=== PATIENT | female | born 1975 | race Caucasian/White ===

== ENCOUNTER 2018-06-11 17:09 | Emergency (ER) | payer SELFPAY ==
[2018-06-11 17:14] VITALS: BP 135/84; PULSE 92; RESP 14; TEMP 36.7; O2SAT 98
--- NOTE | 2018-06-11 17:31 | W.ED.GENAD ---
Discharge Plan Disposition Patient Disposition: HOME Condition: Stable Discharge Details Chief Complaint: Abd Prob Clinical Impression: Abdominal pain, Cellulitis Primary Care Provider: Unknown,Unknown ED Provider: Lydia Hayes Home Meds and New Rx's Prescriptions: New clindamycin HCl 150 mg capsule 450 mg PO TID 6 Days Qty: 54 RF: 0 Continued duloxetine [Cymbalta] 60 mg Capsule,Delayed Release(Dr/Ec) 60 mg PO DAILY RF: 0 Discharge Instructions Instructions: Cellulitis (ED), Abdominal Pain (ED) Additional Instructions: You may have a mild skin infection near your lap band. You are being given oral antibiotics to treat for this possible mild infection. Drink plenty of fluids and get plenty of rest. Take Tylenol Motrin as needed and directed for pain. Call your primary care doctor tomorrow to schedule follow-up appointment for reevaluation early next week. Call your bariatric surgeon in [place] for follow-up. If you are unable to follow-up with your bariatric surgeon, you may follow-up with bariatric surgery at [facility] or [facility]. You can call care management here at [facility] to help with assistance with this appointment if needed. Return immediately to the emergency department any worsening or new concerning symptoms. Referrals: Cori Alcantara MD [ [facility] STAFF PHYSICIAN] - Brant Gan III, DO [OSTEOPATHIC DOCTOR] - Discharge Data Discharge Physician: Lydia Hayes Medical Decision Making 42-year-old female who is 8 years status post a laparoscopic gastric banding who presents with 5 days of intermittent left upper quadrant abdominal pain that is worse with movement, standing or lifting. No other significant associated symptoms. She does admit to cross-country skiing one day prior to onset of symptoms but denies any known injury. She does admit to drinking alcohol several times weekly. She states she has not seen her bariatric surgeon in [place] for the past 4-6 years. She states her lap band port has not been accessed for approximately 4-6 years. She states that she had a superficial anterior abdominal wall laparoscopic wound infection 1 month ago for which she saw her primary doctor's office and was treated with topical antibiotics and the infection completely healed and she has no pain in this area. Vitals within normal limits. Afebrile. Patient has tenderness to palpation in the epigastric and left upper quadrant region. There are no acute superficial signs of cellulitis. No right lower quadrant tenderness. Diagnosis includes abdominal muscle wall strain, cholecystitis, pancreatitis, small bowel obstruction, gastritis. Will place an IV, bolus IV fluids, labs, urinalysis, Toradol and CT abdomen to r/o acute process. 1850 -- pt states she feels better, pain improved. 1914 --labs and imaging reviewed. Labs unremarkable. CT notes presumed postsurgical change related to lap band placement with the possibility of adjacent cellulitis not excluded. Gastric lap band in place. Minimal free fluid but no other acute findings. 1924 --d/w surgery Dr. Gan - due to specific complications related to lap band surgery, recommends consultation with a bariatric surgeon. 1929 --d/w transfer center at [facility] - there is no bariatric surgeon available concrete form setter at this time. 1944 --d/w [facility] surgery -there is no bariatric surgeon available concrete form setter in the evenings. Discussed with their general surgeon concrete form setter and based on patient's negative workup, no fever, nontoxic presentation, this does not sound consistent with an acute infection. Initially did not recommend oral antibiotics, but it was discussed that patient had a superficial incision wound infection 1 month ago, and agrees with plan with antibiotics. He recommended keflex but patient has an allergy to penicillin. Will treat with clindamycin. 1 dose of clindamycin given here and 2 doses for home in addition to a prescription. Patient that her symptoms can possibly be due to a muscle strain, or she may have a very mild superficial cellulitis. Patient instructed to follow-up with her primary care doctor for reevaluation early next week. She states she will also call her bariatric surgeon in [place]. Patient states she does not plan on traveling there for follow-up, so she is recommended to follow-up with [facility] or [facility] bariatric surgery for follow-up if needed. She is instructed to return here immediately with any worsening symptoms. Patient also expressed concern about insurance of medical costs. She was offered to speak with care management but declined. Medical Records Medical records reviewed: Yes I reviewed the patient's medical records. Imaging Data Radiologic Study: Radiologist's impression: CT Abdomen and Pelvis With Contrast EXAM DATE/TIME: 06/11/2018 5:49 PM CLINICAL HISTORY: 42 years old, female; Pain; Abdominal pain; Prior surgery TECHNIQUE: Axial computed tomography images of the abdomen and pelvis with intravenous contrast. Coronal and sagittal reformatted images were created and reviewed. COMPARISON: No relevant prior studies available. FINDINGS: Lower thorax: No acute findings. ABDOMEN: Liver: Low density hepatic lesions, probable small cyst. Gallbladder and bile ducts: Normal. No calcified stones. No ductal dilation. Pancreas: Normal. No ductal dilation. Spleen: Normal. No splenomegaly. Adrenals: Normal. No mass. Kidneys and ureters: Normal. No hydronephrosis. Stomach and bowel: Gastric lap band in place. There is soft tissue stranding in the subcutaneous tissues of the left lower quadrant and anterior abdominal wall in the region of the lap band reservoir. Appendix: No evidence of appendicitis. PELVIS: Bladder: The bladder is not well-distended. Reproductive: IUD in place. ABDOMEN and PELVIS: Intraperitoneal space: Minimal free fluid. Bones/joints: No acute fracture. No dislocation. Soft tissues: See Stomach And Bowel Finding. Vasculature: Normal. No abdominal aortic aneurysm. Lymph nodes: Normal. No enlarged lymph nodes. IMPRESSION: 1. Presumed postsurgical change related to lap band placement. Adjacent cellulitis in the appropriate clinical setting not excludable. 2. Minimal free fluid can be normal for age. Lab Data Lab results reviewed: Yes I reviewed the patient's lab results. Laboratory Tests Range/Units 06/11/18 06/11/18 17:58 17:58 WBC (4.4-10.8) k/cumm 9.15 RBC (4.00-5.20) m/cumm 4.42 Hgb (12.0-15.5) g/dL 13.2 Hct (36.0-46.0) % 39.0 MCV (80-95) fL 88.2 MCH (27.0-33.0) pg 29.9 MCHC (32.0-36.0) g/dL 33.8 RDW (11.7-14.6) % 12.6 Plt Count (130-400) x1000/uL 239 MPV (8.0-11.0) fL 11.5 H Immature Gran % 0.2 Neutrophils % 67.6 Lymphocytes % 23.8 Monocytes % 7.3 Eosinophils % 0.8 Basophils % 0.3 Absolute Neutrophils (1.2-6.7) k/cumm 6.18 Absolute Lymphocytes (1.2-3.4) k/cumm 2.18 Absolute Monocytes (0.11-0.7) k/cumm 0.67 Absolute Eosinophils (0.0-0.7) k/cumm 0.07 Absolute Basophils (0.0-0.2) k/cumm 0.03 Sodium (136-145) mmol/L 141 Potassium (3.5-5.1) mmol/L 3.6 Chloride (98-107) mmol/L 104 Carbon Dioxide (21.0-32.0) mmol/L 26.4 Anion Gap (3-11) mmol/L 10.6 BUN (7-18) mg/dL 13 Creatinine (0.55-1.02) mg/dL 0.84 Estimated GFR/1.73 m2 (mL/min/1.73m2) >= 60.00 Glucose (70-100) mg/dL 84 Calcium (8.5-10.1) mg/dL 9.0 Total Bilirubin (0.2-1.0) mg/dL 0.2 AST (15-37) U/L 24 ALT (12-78) U/L 26 Alkaline Phosphatase (46-116) U/L 79 Total Protein (6.4-8.2) g/dL 7.5 Albumin (3.4-5.0) g/dL 3.9 Lipase (73-393) U/L 154 HPI General Mode of arrival: ambulatory. Date/Time Provider Initiated Documentation: 06/11/18 17:20. Limitations to Documentation: no limitations. Information obtained by: patient. HPI Narrative: Patient is a 42-year-old female who presents with intermittent dull, achy, crampy upper abdominal pain for the past 5 days. Patient states the pain is worse with movement, standing or lifting and better with nothing. Patient states she took Aleve without relief. Patient admits to vomiting once 2 days ago but not since then. She denies fever, nausea, vomiting, diarrhea or urinary symptoms. Patient states she was cross-country skiing the day prior to onset of symptoms of abdominal pain but denies any known injury. Patient states she is sexually active with one partner and denies any known exposure to STDs, vaginal discharge or vaginal lesions. Patient states she does drink 2 glasses of wine 3-4 times weekly. She also states she ate fois gras and kang 1 day prior to onset of symptoms but denies any known h/o gallstones. Related Data Home Medications Medication Instructions Recorded Confirmed clindamycin HCl 450 mg PO TID 6 Days #54 cap 06/11/18 duloxetine [Cymbalta] 60 mg PO DAILY 06/11/18 06/11/18 Previous Rx's Medication Instructions Recorded clindamycin HCl 450 mg PO TID 6 Days #54 cap 06/11/18 Allergies Allergy/AdvReac Type Severity Reaction Status Date / Time aspirin AdvReac Intermediate vomiting Unverified 06/11/18 17:25 and rash Penicillins AdvReac Intermediate vomiting Unverified 06/11/18 17:25 and rash General Stated Complaint: Abd Prob RIMA: 3 Review of Systems Review of Systems All systems reviewed & are unremarkable except as noted in HPI and below Constitutional Reports as per HPI, Denies chills and Denies fever(s) Eyes Denies blurry vision ENT Denies dizziness, Denies sore throat and Denies throat swelling Cardiovascular Denies chest pain and Denies dyspnea Respiratory Denies dyspnea Gastrointestinal Reports abdominal pain, Denies diarrhea and Denies vomiting Genitourinary Denies hematuria and Denies dysuria Musculoskeletal Denies back pain and Denies numbness Integumentary/Breasts Denies lesions and Denies rash Neurologic Denies dizziness and Denies numbness Allergic/Immunologic Denies throat swelling PFSH Medical History Port-A-Cath in place (Acute) Depression (Chronic) Surgical History Hx of laparoscopic gastric banding (Acute) History of tonsillectomy (Chronic) Social History Smoking/Tobacco Use Status: Former Tobacco Use alcohol intake: current alcohol intake frequency: 0-2 drinks per day substance use type: does not use Exam Const General: cooperative, healthy appearing and no acute distress HENMT Head: normal to inspection Face and sinus: normal facial exam Eyes General: appearance normal, both eyes and all related structures Pupils: PERRL EOM: EOM intact bilaterally Neck Neck: normal visual inspection and No submandibular swelling Lymphatic: no lymphadenopathy noted Chest Chest: normal inspection of the chest and no tenderness Resp Effort & Inspection: normal respiratory effort and able to speak in complete sentences Auscultation: clear to auscultation bilaterally Cardio Rate: regular rate Rhythm: regular rhythm GI Palpation: soft, not firm, not rigid and tender in the epigastrum and in the LUQ Auscultation: normal bowel sounds Abdomen image: 1. Laparoscopic band scar with blanching erythematous tissue surrounding this area with no acute signs of infection or drainage 2. Healing superficial skin burn w/o acute signs of infection Back/Spine/Pelvis Back: no CVA tenderness Skin General skin exam: no rashes or lesions noted Neuro General: alert, awake and oriented x3 Cognition: normal cognition Speech: speech normal Motor: muscle tone normal throughout Sensory Exam: no sensory deficits noted Extrem General: normal to inspection, full ROM, normal capillary refill, no calf tenderness bilaterally and no edema Psych Appearance: grossly normal Mental Status: mental status grossly normal Speech and Movement: speech and movement normal Affect: normal affect Course Vital Signs Temperature 98.1 F 06/11/18 17:14 Pulse 92 H 06/11/18 17:14 Respiratory Rate 14 06/11/18 17:14 Blood Pressure 135/84 06/11/18 17:14 Pulse Oximetry 98 06/11/18 17:14 Temperature 98.1 F 06/11/18 17:14 Temperature Source Skin 06/11/18 17:14 Pulse 92 H 06/11/18 17:14 Respiratory Rate 14 06/11/18 17:14 Blood Pressure 135/84 06/11/18 17:14 Blood Pressure Position Sitting 06/11/18 17:14 Pulse Oximetry 98 06/11/18 17:14 Oxygen Delivery Method Room Air 06/11/18 17:14 Oxygen Flow Rate 0 06/11/18 17:14 Pain Level 7 06/11/18 17:14
--- NOTE | 2018-06-11 17:40 | NUR.NOTE ---
Nursing Note: MD Hayes is at the bedside.
--- NOTE | 2018-06-11 17:46 | DI.CT_ITS ---
SYMPTOMS/DIAGNOSIS: UPPER ABD PAIN, ? CHOLECYSTITIS VS PANCREATITIS CT OF THE ABDOMEN AND PELVIS: There are no prior comparison exams. Images were performed from the lung bases through the ischial tuberosities after and without oral contrast. There is a lap band in place at the fundus of the stomach. The reservoir in the anterior left mid abdominal soft tissues shows some surrounding stranding. The date of the placement is unknown. The findings could be post surgical or represent surrounding cellulitis or possibly post traumatic. The lung bases are clear. A tiny cyst is seen in the liver. The gallbladder, spleen, pancreas, kidneys and adrenals are unremarkable. An IUD is noted in the uterus. The ovaries and bladder are unremarkable. There is a trace amount of free fluid. There is no bowel dilatation or inflammatory change. IMPRESSION: Some stranding is seen in the soft tissues surrounding the reservoir for the lap band. Clinical correlation is recommended. No acute intra-abdominal abnormality is seen.
[2018-06-11] MEDS: Normal Saline 1,000 ML 1000 ML IV (17:55)
[2018-06-11] MEDS: Normal Saline Flush 10 ML SYR IVP (17:55)
[2018-06-11] MEDS: Ketorolac 30 MG/ML VIAL IVP (18:01)
[2018-06-11 18:02] LABS: Abs Immature Grans 0.02 k/cumm (0.0-0.09); Absolute Basophil Count 0.03 k/cumm (0.0-0.2); Absolute Eosinophil Count 0.07 k/cumm (0.0-0.7); Absolute Lymphocyte Count 2.18 k/cumm (1.2-3.4); Absolute Monocyte Count 0.67 k/cumm (0.11-0.7); Absolute Neutrophil Count 6.18 k/cumm (1.2-6.7); Basophils % 0.3; Eosinophils % 0.8; HGB 13.2 g/dL (12.0-15.5); Immature Grans % 0.2; Lymphocytes % 23.8; Mean Corp. HGB Concentration 33.8 g/dL (32.0-36.0); Mean Corpuscular Hemoglobin 29.9 pg (27.0-33.0); Mean Corpuscular Volume 88.2 fL (80-95); Mean Platelet Volume 11.5 fL (8.0-11.0); Monocytes % 7.3; Neutrophils % 67.6; Platelet Count 239 x1000/uL (130-400); RBC 4.42 m/cumm (4.00-5.20); RBC Distribution Width 12.6 % (11.7-14.6); White Blood Cell Count 9.15 k/cumm (4.4-10.8)
[2018-06-11 18:14] LABS: ALT 26 U/L (12-78); AST 24 U/L (15-37); Albumin 3.9 g/dL (3.4-5.0); Alkaline Phosphatase 79 U/L (46-116); Anion Gap 10.6 mmol/L (3-11); BUN 13 mg/dL (7-18); Bilirubin, Total 0.2 mg/dL (0.2-1.0); CO2 26.4 mmol/L (21.0-32.0); CREATININE 0.84 mg/dL (0.55-1.02); Chloride 104 mmol/L (98-107); Glucose 84 mg/dL (70-100); Lipase 154 U/L (73-393); Potassium 3.6 mmol/L (3.5-5.1); Sodium 141 mmol/L (136-145); Total Protein 7.5 g/dL (6.4-8.2)
[2018-06-11] MEDS: Omnipaque 350 MG/ML 100 ML BTL IJ (19:03)
--- NOTE | 2018-06-11 19:17 | DI.VRAD_ITS ---
EXAM: CT Abdomen and Pelvis With Contrast EXAM DATE/TIME: 06/11/2018 5:49 PM CLINICAL HISTORY: 42 years old, female; Pain; Abdominal pain; Prior surgery TECHNIQUE: Axial computed tomography images of the abdomen and pelvis with intravenous contrast. Coronal and sagittal reformatted images were created and reviewed. COMPARISON: No relevant prior studies available. FINDINGS: Lower thorax: No acute findings. ABDOMEN: Liver: Low density hepatic lesions, probable small cyst. Gallbladder and bile ducts: Normal. No calcified stones. No ductal dilation. Pancreas: Normal. No ductal dilation. Spleen: Normal. No splenomegaly. Adrenals: Normal. No mass. Kidneys and ureters: Normal. No hydronephrosis. Stomach and bowel: Gastric lap band in place. There is soft tissue stranding in the subcutaneous tissues of the left lower quadrant and anterior abdominal wall in the region of the lap band reservoir. Appendix: No evidence of appendicitis. PELVIS: Bladder: The bladder is not well-distended. Reproductive: IUD in place. ABDOMEN and PELVIS: Intraperitoneal space: Minimal free fluid. Bones/joints: No acute fracture. No dislocation. Soft tissues: See Stomach And Bowel Finding. Vasculature: Normal. No abdominal aortic aneurysm. Lymph nodes: Normal. No enlarged lymph nodes. IMPRESSION: 1. Presumed postsurgical change related to lap band placement. Adjacent cellulitis in the appropriate clinical setting not excludable. 2. Minimal free fluid can be normal for age. COMMENT: Preliminary interpretation is based on receipt of 331 image(s). A final report will be issued subsequently. Dictated and Authenticated by: Becky Adrian MD. Ordering:JAYA Freeman MD
[2018-06-11] MEDS: Clindamycin 150 MG CAP 450 MG PO ×3 (20:07→20:27)
[2018-06-11 20:23] VITALS: BP 132/82; PULSE 77; RESP 18; TEMP 37.4; O2SAT 100
== END 2018-06-11 20:29 | disposition home or self-care (01) ==
PROVIDERS: Emergency Provider Physician Assistant
DX: R10.12 Left upper quadrant pain (principal); L03.311 Cellulitis of abdominal wall
CPT/HCPCS: 36415; 80053; 81025; 83690; 96361; 96374; 99285; 74177; 85025; 99284; J1885; J3490

== ENCOUNTER 2018-07-02 12:20 | Outpatient (REF) | payer SELFPAY ==
[2018-07-02 19:34] LABS: Amylase 93 U/L (25-115); Anion Gap 10.1 mmol/L (3-11); BUN 9 mg/dL (7-18); CO2 27.9 mmol/L (21.0-32.0); CREATININE 0.78 mg/dL (0.55-1.02); Calcium 9.1 mg/dL (8.5-10.1); Chloride 102 mmol/L (98-107); Glucose 91 mg/dL (70-100); Lipase 135 U/L (73-393); Potassium 4.2 mmol/L (3.5-5.1); Sodium 140 mmol/L (136-145)
[2018-07-02 19:41] LABS: HCT 39.5 % (36.0-46.0); Mean Corp. HGB Concentration 32.9 g/dL (32.0-36.0); Mean Corpuscular Hemoglobin 29.3 pg (27.0-33.0); Mean Platelet Volume 12.4 fL (8.0-11.0); Platelet Count 271 x1000/uL (130-400); RBC 4.44 m/cumm (4.00-5.20); RBC Distribution Width 12.6 % (11.7-14.6)
[2018-07-06 15:15] LABS: Chlamydia Result Negative; GC Result Negative; Specimen Description URINE
== END 2018-07-02 12:40 ==
LOC: NCHCN 12:20
PROVIDERS: PCP Nurse Practitioner Family; Visit Provider Nurse Practitioner Family
DX: R10.84 Generalized abdominal pain (principal); Z11.3 Encounter for screening for infections with a predominantly sexual mode of transmission
CPT/HCPCS: 80048; 83690; 85027; 87491; 87591; 82150

== ENCOUNTER 2018-08-27 09:34 | Emergency (ER) | payer OTHER, SELFPAY ==
[2018-08-27 09:45] VITALS: BP 127/83; PULSE 84; RESP 15; TEMP 36.7; O2SAT 100
--- NOTE | 2018-08-27 10:47 | DI.RAD_ITS ---
SYMPTOMS/DIAGNOSIS: PAIN, KNEE GAVE OUT LEFT KNEE: The bony structures are normally mineralized. Joint spaces intact. Minimal periarticular hypertrophic spurring is demonstrated. There is no evidence of a fracture or dislocation.
--- NOTE | 2018-08-27 11:27 | W.ED.GENAD ---
Discharge Plan Disposition Patient Disposition: HOME Discharge Details Chief Complaint: Orthopedic Clinical Impression: Injury of knee, left Primary Care Provider: Elaine Ruvalcaba ED Provider: Mathew Griffin Home Meds and New Rx's Prescriptions: No Action Vyvanse 50 mg Capsule 50 mg PO DAILY RF: 0 duloxetine [Cymbalta] 60 mg Capsule,Delayed Release(Dr/Ec) 60 mg PO DAILY RF: 0 Discharge Instructions Instructions: Hinged Knee Brace (ED) Additional Instructions: Please take ibuprofen over the counter - dose according to label. Please take tylenol over the counter - dose according to label. Use knee brace and crutches. Bear weight as tolerated. Please follow-up with orthopedics. Call for an appointment. Please contact your primary care physician to arrange follow-up. Return to the ER for any worsening or new concerning symptoms. Referrals: Elaine Ruvalcaba NP [Primary Care Provider] - Damaso Veras MD [ [facility] STAFF PHYSICIAN] - Discharge Data Discharge Date/Time-TO BE ENTERED AT DEPARTURE: 08/27/18 11:53 Medical Decision Making 42-year-old female presents with left knee pain, mild effusion and limited flexion after 2 falls, initial occurred 2 weeks ago with a popping sensation and then recurrent yesterday with direct impact anterior lateral knee. Knee x-ray interpreted by radiology: The bony structures are normally mineralized. Joint spaces intact. Minimal periarticular hypertrophic spurring is demonstrated. There is no evidence of a fracture or dislocation. Concern for meniscal tear versus sprain. Hinged knee brace was applied and crutches provided. Patient instructed to bear weight as tolerated. Plan to have her follow-up with orthopedics. Usual and customary discharge instructions were provided. HPI General Mode of arrival: ambulatory. Date/Time Provider Initiated Documentation: 08/27/18 09:48. Limitations to Documentation: no limitations. Information obtained by: patient. HPI Narrative: 42-year-old female presents with chief complaint of left knee pain. Patient notes approximately 2 weeks ago she slipped and fell and injured her left knee. During the fall she experienced a popping sensation. Knee has been sore over the past couple weeks although was improving. Yesterday she tripped and fell onto her left knee and impacted it anterior laterally on the ground. Pain is now worse. Pain is worse when she flexes her knee. Flexion is limited secondary to discomfort. Discomfort feels deep. She has no associated numbness or weakness. Related Data Home Medications Medication Instructions Recorded Confirmed duloxetine [Cymbalta] 60 mg PO DAILY 06/11/18 08/27/18 lisdexamfetamine [Vyvanse] 50 mg PO DAILY 08/27/18 08/27/18 Allergies Allergy/AdvReac Type Severity Reaction Status Date / Time aspirin AdvReac Intermediate vomiting Unverified 08/27/18 09:53 and rash Penicillins AdvReac Intermediate vomiting Unverified 08/27/18 09:53 and rash General Stated Complaint: Orthopedic RIMA: 4 Review of Systems Musculoskeletal Reports as per HPI Neurologic Reports as per HPI [facility] Medical History Port-A-Cath in place (Acute) Depression (Chronic) Surgical History History of removal of laparoscopic gastric banding device (Acute) Hx of laparoscopic gastric banding (Acute) History of tonsillectomy (Chronic) Social History Smoking/Tobacco Use Status: Former Tobacco Use Quit Date: 06/02/03 Alcohol Intake: current Alcohol Intake frequency: a few times a week Drug use: Never Substance use type: does not use Do you feel safe at home: Yes Do you feel safe in your relationship?: Yes Exam Const General: no acute distress HENMT Head: normocephalic and atraumatic Cardio Rate: regular rate Rhythm: regular rhythm Pulses: posterior tibial pulses present on the left 2+ Skin Trauma: no lacerations (Left knee) Neuro General: alert, awake and tone normal Extrem Left lower extremity: hip/thigh Details: normal to inspection, knee Details: swelling (Mild effusion noted), abnormal ROM Details: pain with active ROM Details: with flexion and knee ligament exam normal; no tenderness, no deformity and no unusual warmth and lower leg Details: normal to inspection Course Vital Signs Temperature 36.7 C 08/27/18 09:45 Pulse 84 08/27/18 09:45 Respiratory Rate 15 08/27/18 09:45 Blood Pressure 127/83 08/27/18 09:45 Pulse Oximetry 100 08/27/18 09:45 Temperature 36.7 C 08/27/18 09:45 Temperature Source Temporal Artery Scan 08/27/18 09:45 Pulse 84 08/27/18 09:45 Respiratory Rate 15 08/27/18 09:45 Respiratory Effort Non-Labored 08/27/18 09:49 Blood Pressure 127/83 08/27/18 09:45 Blood Pressure Position Sitting 08/27/18 09:45 Pulse Oximetry 100 08/27/18 09:45 Oxygen Delivery Method Room Air 08/27/18 09:45 Oxygen Flow Rate 0 08/27/18 09:45 Pain Level 5 08/27/18 09:51
--- NOTE | 2018-08-30 01:37 | ED.GENADUL_ITS ---
Discharge Plan Disposition Patient Disposition: HOME Discharge Details Chief Complaint: Orthopedic Clinical Impression: Injury of knee, left Primary Care Provider: Elaine Ruvalcaba ED Provider: Mathew Griffin Home Meds and New Rx's Prescriptions: No Action Vyvanse 50 mg Capsule 50 mg PO DAILY RF: 0 duloxetine [Cymbalta] 60 mg Capsule,Delayed Release(Dr/Ec) 60 mg PO DAILY RF: 0 Discharge Instructions Instructions: Hinged Knee Brace (ED) Additional Instructions: Please take ibuprofen over the counter - dose according to label. Please take tylenol over the counter - dose according to label. Use knee brace and crutches. Bear weight as tolerated. Please follow-up with orthopedics. Call for an appointment. Please contact your primary care physician to arrange follow-up. Return to the ER for any worsening or new concerning symptoms. Referrals: Elaine Ruvalcaba NP [Primary Care Provider] - Damaso Veras MD [ [facility] STAFF PHYSICIAN] - Discharge Data Discharge Date/Time-TO BE ENTERED AT DEPARTURE: 08/27/18 11:53 Medical Decision Making 42-year-old female presents with left knee pain, mild effusion and limited flexion after 2 falls, initial occurred 2 weeks ago with a popping sensation and then recurrent yesterday with direct impact anterior lateral knee. Knee x-ray interpreted by radiology: The bony structures are normally mineralized. Joint spaces intact. Minimal periarticular hypertrophic spurring is demonstrated. There is no evidence of a fracture or dislocation. Concern for meniscal tear versus sprain. Hinged knee brace was applied and crutches provided. Patient instructed to bear weight as tolerated. Plan to have her follow-up with orthopedics. Usual and customary discharge instructions were provided. HPI General Mode of arrival: ambulatory . Date/Time Provider Initiated Documentation: 08/27/18 09:48 . Limitations to Documentation: no limitations . Information obtained by: patient . HPI Narrative: 42-year-old female presents with chief complaint of left knee pain. Patient notes approximately 2 weeks ago she slipped and fell and injured her left knee. During the fall she experienced a popping sensation. Knee has been sore over the past couple weeks although was improving. Yesterday she tripped and fell onto her left knee and impacted it anterior laterally on the ground. Pain is now worse. Pain is worse when she flexes her knee. Flexion is limited secondary to discomfort. Discomfort feels deep. She has no associated numbness or weakness. Related Data Home Medications Medication Instructions Recorded Confirmed duloxetine [Cymbalta] 60 mg PO DAILY 06/11/18 08/27/18 lisdexamfetamine [Vyvanse] 50 mg PO DAILY 08/27/18 08/27/18 Allergies Allergy/AdvReac Type Severity Reaction Status Date / Time aspirin AdvReac Intermediate vomiting Unverified 08/27/18 09:53 and rash Penicillins AdvReac Intermediate vomiting Unverified 08/27/18 09:53 and rash General Stated Complaint: Orthopedic RIMA: 4 Review of Systems Musculoskeletal Reports as per HPI Neurologic Reports as per HPI [facility] Medical History Port-A-Cath in place (Acute) Depression (Chronic) Surgical History History of removal of laparoscopic gastric banding device (Acute) Hx of laparoscopic gastric banding (Acute) History of tonsillectomy (Chronic) Social History Smoking/Tobacco Use Status: Former Tobacco Use Quit Date: 06/02/03 Alcohol Intake: current Alcohol Intake frequency: a few times a week Drug use: Never Substance use type: does not use Do you feel safe at home: Yes Do you feel safe in your relationship?: Yes Exam Const General: no acute distress HENMT Head: normocephalic and atraumatic Cardio Rate: regular rate Rhythm: regular rhythm Pulses: posterior tibial pulses present on the left 2+ Skin Trauma: no lacerations (Left knee) Neuro General: alert, awake and tone normal Extrem Left lower extremity: hip/thigh Details: normal to inspection, knee Details: swelling (Mild effusion noted), abnormal ROM Details: pain with active ROM Details: with flexion and knee ligament exam normal; no tenderness, no deformity and no unusual warmth and lower leg Details: normal to inspection Course Vital Signs Temperature 36.7 C 08/27/18 09:45 Pulse 84 08/27/18 09:45 Respiratory Rate 15 08/27/18 09:45 Blood Pressure 127/83 08/27/18 09:45 Pulse Oximetry 100 08/27/18 09:45 Temperature 36.7 C 08/27/18 09:45 Temperature Source Temporal Artery Scan 08/27/18 09:45 Pulse 84 08/27/18 09:45 Respiratory Rate 15 08/27/18 09:45 Respiratory Effort Non-Labored 08/27/18 09:49 Blood Pressure 127/83 08/27/18 09:45 Blood Pressure Position Sitting 08/27/18 09:45 Pulse Oximetry 100 08/27/18 09:45 Oxygen Delivery Method Room Air 08/27/18 09:45 Oxygen Flow Rate 0 08/27/18 09:45 Pain Level 5 08/27/18 09:51
== END 2018-08-27 11:53 | disposition home or self-care (01) ==
PROVIDERS: Emergency Provider Student in an Organized Health Care Education/Training Program; PCP Nurse Practitioner Family
DX: M25.462 Effusion, left knee (principal); M25.562 Pain in left knee; W01.0XXA Fall on same level from slipping, tripping and stumbling without subsequent striking against object, initial encounter
CPT/HCPCS: 29505; 73562; 99283; E0114; L1810

== ENCOUNTER 2019-12-24 07:52 | Outpatient (CLI) | payer SELFPAY ==
[2019-12-28 15:36] LABS: SARS-CoV-2 RNA Undetected (Undetected)
== END 2019-12-24 08:12 ==
PROVIDERS: PCP Nurse Practitioner Family; Visit Provider Nurse Practitioner Family
DX: Z11.59 Encounter for screening for other viral diseases (principal)
CPT/HCPCS: U0003

== ENCOUNTER 2020-09-21 10:04 | Outpatient (REF) | payer SELFPAY ==
[2020-09-22 09:55] LABS: Anion Gap 6.7 mmol/L (3-11); BUN 18 mg/dL (7-18); CO2 28.3 mmol/L (21.0-32.0); CREATININE 0.9 mg/dL (0.55-1.02); Calcium 8.8 mg/dL (8.5-10.1); Calculated LDL 111 mg/dL (<100); Chloride 107 mmol/L (98-107); Cholesterol 181 mg/dL (<200); Glucose 86 mg/dL (74-106); HDL Cholesterol 49 mg/dL (40-60); Sodium 142 mmol/L (136-145); TSH (W/Ref FT4) 2.37 uIU/mL (0.36-3.74); Triglyceride 109 mg/dL (<150)
[2020-09-22 10:19] LABS: Hemoglobin A1C 5.2 % (<5.7)
== END 2020-09-21 10:05 | disposition home or self-care (01) ==
LOC: NCHCN 10:04
PROVIDERS: PCP Nurse Practitioner Family; Visit Provider Nurse Practitioner Family
DX: R53.83 Other fatigue (principal); Z13.220 Encounter for screening for lipoid disorders; Z68.42 Body mass index [BMI] 45.0-49.9, adult; Z13.1 Encounter for screening for diabetes mellitus
CPT/HCPCS: 80048; 80061; 83036; 84443

== ENCOUNTER 2022-05-01 15:45 | Outpatient (REF) | payer SELFPAY ==
[2022-05-01 20:23] LABS: Anion Gap 6.8 mmol/L (3-11); BUN 16 mg/dL (7-18); CO2 28.2 mmol/L (21.0-32.0); CREATININE 1.1 mg/dL (0.55-1.02); Calcium 9.6 mg/dL (8.5-10.1); Chloride 101 mmol/L (98-107); Estimated GFR 62.76 (mL/min/1.73m2); Glucose 87 mg/dL (74-106); Potassium 4.6 mmol/L (3.5-5.1); Sodium 136 mmol/L (136-145)
== END 2022-05-01 15:46 | disposition home or self-care (01) ==
LOC: NCHCN 15:45
PROVIDERS: PCP Nurse Practitioner Family; Visit Provider Nurse Practitioner Family
DX: U07.1 COVID-19 (principal)
CPT/HCPCS: 80048

== ENCOUNTER 2022-07-22 09:34 | Emergency (ER) | payer SELFPAY ==
[2022-07-22 09:39] VITALS: BP 90/56; PULSE 92; RESP 18; TEMP 36.6; O2SAT 99
[2022-07-22] MEDS: HYDROmorphone 2 MG/ML SYR 1 MG IVP (10:02)
[2022-07-22] MEDS: Ketorolac 15 MG/ML VIAL IVP (10:02)
[2022-07-22] MEDS: Cyclobenzaprine 10 MG TAB PO (10:03)
[2022-07-22] MEDS: Normal Saline Flush 10 ML SYR IVP (10:21)
--- NOTE | 2022-07-22 11:16 | ED.GENADUL_ITS ---
Discharge Plan Disposition Patient Disposition: Home Condition: Improving Discharge Details Clinical Impression: Lumbar spine strain, Radiculopathy of leg Primary Care Provider: Elaine Ruvalcaba ED Provider: Daniel James Home Meds and New Rx's Prescriptions: New cyclobenzaprine 10 mg tablet 10 mg PO TID PRN (Reason: muscle spasm) Qty: 15 0RF prednisone 50 mg tablet 50 mg PO DAILY 4 Days Qty: 4 0RF Continued duloxetine [Cymbalta] 60 mg Capsule,Delayed Release(Dr/Ec) 90 mg PO DAILY Discharge Instructions Instructions: Low Back Strain (ED) Additional Instructions: At this time I feel that you have strained your low back and having some nerve involvement down your left leg. Please take the medication as prescribed and continue [id number] acetaminophen and ibuprofen as discussed. For severe pain please use narcotics sparingly. If you develop any new or significant worsening of pain or discomfort return to the emergency department for reassessment. If not improving follow-up with your primary care provider for Re-check Referrals: Primary Care Provider [Outside] Discharge Data Discharge Date/Time-TO BE ENTERED AT DEPARTURE: 07/22/22 11:37 Medical Decision Making Patient presenting to the emergency department for chief complaint of back pain. She states that on Friday she was cross-country skiing and may have pulled something in her back. Patient denies any injury or trauma does state history of back pain but states this is slightly worse than normal. Physical exam shows mostly paraspinal soft tissue tenderness with mild to no tenderness of the lumbar spine. Exam is otherwise unremarkable. LOW risk for ABDOMINAL AORTIC ANEURYSM, CAUDA EQUINA SYNDROME, EPIDURAL MASS LESION, SPINAL STENOSIS, OR HERNIATED DISK CAUSING SEVERE STENOSIS, thus I consider the discharge disposition reasonable. We have discussed the diagnosis and risks, and we agree with discharging home to follow-up with their primary doctor. We also discussed returning to the Emergency Department immediately if new or worsening symptoms occur. We have discussed the symptoms which are most concerning (e.g., saddle anesthesia, urinary or bowel incontinence or retention, changing or worsening pain) that necessitate immediate return. Will place patient on Flexeril and prednisone along with continued use of [id number] medications. Did give patient limited supply of to go narcotics after discussion of risk versus benefit. After discussion of diagnosis and plan of care patient has no further needs, questions, or concerns and states clear understanding to return to the emergency department for any worsening symptoms. This documentation was generated using [employer] dictation system, please disregard any oddities of phrase or misspellings. HPI General Mode of arrival: wheelchair . Date/Time Provider Initiated Documentation: 07/22/22 09:37 . Limitations to Documentation: no limitations . Information obtained by: patient, family and RN notes reviewed . History of Pr esent Illness 46 year old F presents to the emergency department with the chief complaint of Back pain, described as moderate and severe, with intensity rated at 8. Quality is described as sharp, and is localized to the back. Patient extremity. Patient started experiencing this day(s) (1) and it has been constant. No relieving factors improve symptom(s), Movement worsens symptoms . Patient notes no other symptoms.. Patient did receive the following treatments prior to arrival, NSAID Related Data Home Medications Medication Instructions Recorded Confirmed duloxetine 60 mg capsule,delayed 90 mg PO DAILY 06/11/18 07/22/22 release (Cymbalta) cyclobenzaprine 10 mg tablet 10 mg PO TID PRN muscle spasm #15 07/22/22 tabs prednisone 50 mg tablet 50 mg PO DAILY 4 days #4 tabs 07/22/22 Previous Rx's Medication Instructions Recorded cyclobenzaprine 10 mg tablet 10 mg PO TID PRN muscle spasm #15 07/22/22 tabs prednisone 50 mg tablet 50 mg PO DAILY 4 days #4 tabs 07/22/22 Allergies Allergy/AdvReac Type Severity Reaction Status Date / Time Latex, Natural Rubber Allergy Intermediate Skin Rash Unverified 07/22/22 09:42 aspirin AdvReac Intermediate vomiting Unverified 07/22/22 09:42 and rash Penicillins AdvReac Intermediate vomiting Unverified 07/22/22 09:42 and rash General Stated Complaint: Nk/Back Pain RIMA: 3 Review of Systems Constitutional Constitutional: Denies chills and Denies fever(s) Cardiovascular Cardiovascular: Denies chest pain and Denies dyspnea on exertion Respiratory Respiratory: Denies cough and Denies dyspnea on exertion Gastrointestinal Gastrointestinal: Denies abdominal pain, Denies change in bowel habits, Denies diarrhea, Denies nausea and Denies vomiting Genitourinary Genitourinary: Denies urinary incontinence Musculoskeletal Musculoskeletal: Reports as per HPI and Reports back pain Neurologic Neurologic: Denies sensory deficit PFSH All Active Problems (Updated 07/22/22 @ 11:16 by Daniel James NP) Lumbar spine strain (Acute) Radiculopathy of leg (Acute) Iliotibial band tendinitis of left side (Acute) Medical History (Updated 07/22/22 @ 11:16 by Daniel James NP) Depression Port-A-Cath in place at site of lap banding Surgical History History of removal of laparoscopic gastric banding device History of tonsillectomy Hx of laparoscopic gastric banding Social History Smoking/Tobacco Use Status: Former Tobacco Use Quit Date: 06/02/03 Smoking risk assessment performed?: Yes Alcohol Intake: current Alcohol Intake frequency: a few times a week Drug use: Never Substance use type: does not use Do you feel safe at home: Yes Do you feel safe in your relationship?: Yes Exam Const General: cooperative Orientation: alert, awake and oriented x3 Neck Neck: normal visual inspection, full ROM and no meningeal signs Resp Effort & Inspection: normal respiratory effort Auscultation: clear to auscultation bilaterally Cardio Rate: regular rate Rhythm: regular rhythm Heart Sounds: S1 normal and S2 normal Back/Spine/Pelvis Thoracic/Lumbar Spine: pain with thoraco-lumbar ROM, paraspinal tenderness, thoraco-lumbar ROM limited and No lumbar spinal tenderness Pelvis: buttock tenderness on the left Neuro General: patient alert, patient awake and patient oriented x3 DTR's: Rt Patellar: 2+, Lt Patellar: 2+, Rt Ankle: 2+ and Lt Ankle: 2+ Course Vital Signs Vital signs: Vital Signs Temperature 36.6 C 07/22/22 09:39 Pulse 92 H 07/22/22 09:39 Respiratory Rate 18 07/22/22 09:39 Blood Pressure 90/56 L 07/22/22 09:39 Pulse Oximetry 99 07/22/22 09:39 Temperature 36.6 C 07/22/22 09:39 Temperature Source Tympanic 07/22/22 09:39 Pulse 92 H 07/22/22 09:39 Respiratory Rate 18 07/22/22 09:39 Respiratory Effort Normal 07/22/22 09:41 Blood Pressure 90/56 L 07/22/22 09:39 Blood Pressure Position Sitting 07/22/22 09:39 Pulse Oximetry 99 07/22/22 09:39 Oxygen Delivery Method Room Air 07/22/22 09:39 Oxygen Flow Rate 0 07/22/22 09:39 Pain Level 7 07/22/22 10:02 PAWSS Have you Been Recently Intoxicated or Drunk Within the Last 30 days?: No Have you Ever Experienced Previous Episodes of Alcohol Withdrawal?: No Have you ever Experienced Withdrawal Seizures?: No Have you ever Experienced Delirium Tremens(DT)s?: No Have you ever undergone Alcohol Rehabilitation Treatment (i.e, inpt ot outpatient treatment programs)?: No Have you ever Experienced Blackouts?: No Have you ever Combined Alcohol with other Downers within the last 90 days?: No Have you ever Combined Alcohol with any other Substance of Abuse during the last 90 days?: No Result: 0
[2022-07-22 11:24] VITALS: PULSE 72; RESP 20; O2SAT 98
[2022-07-22] MEDS: predniSONE 20 MG TAB 60 MG PO (11:24)
== END 2022-07-22 11:37 | disposition home or self-care (01) ==
PROVIDERS: Emergency Provider Nurse Practitioner Family; PCP Nurse Practitioner Family
DX: S39.012A Strain of muscle, fascia and tendon of lower back, initial encounter (principal); M54.10 Radiculopathy, site unspecified; X50.9XXA Other and unspecified overexertion or strenuous movements or postures, initial encounter; Y93.23 Activity, snow (alpine) (downhill) skiing, snowboarding, sledding, tobogganing and snow tubing
CPT/HCPCS: 96374; 96375; 99284; J1170; J1885; J3490; J7512

== ENCOUNTER 2023-06-09 15:26 | Outpatient (REF) | payer SELFPAY ==
[2023-06-09 19:44] LABS: ALT 34 U/L (14-59); AST 25 U/L (15-37); Albumin 4.1 g/dL (3.4-5.0); Alkaline Phosphatase 79 U/L (46-116); Anion Gap 10.1 mmol/L (3-11); BUN 12 mg/dL (7-18); Bilirubin, Total 0.4 mg/dL (0.2-1.0); CO2 26.9 mmol/L (21.0-32.0); CREATININE 0.8 mg/dL (0.55-1.02); Calcium 9.5 mg/dL (8.5-10.1); Chloride 103 mmol/L (98-107); Glucose 86 mg/dL (74-106); Potassium 3.6 mmol/L (3.5-5.1); Sodium 140 mmol/L (136-145); Total Protein 7.7 g/dL (6.4-8.2)
[2023-06-10 22:09] LABS: Calculated LDL 112 mg/dL (<100); Cholesterol 179 mg/dL (<200); HDL Cholesterol 55 mg/dL (40-60); Triglyceride 64 mg/dL (<150)
== END 2023-06-09 15:27 | disposition home or self-care (01) ==
LOC: NCHCN 15:26
PROVIDERS: PCP Nurse Practitioner Family; Visit Provider Nurse Practitioner Family
DX: E66.01 Morbid (severe) obesity due to excess calories (principal)
CPT/HCPCS: 80053; 80061

== ENCOUNTER → 2023-11-18 03:42 | Outpatient (CLI) | payer BC, SELFPAY ==
--- NOTE | 2023-11-18 | DI.MRI_ITS ---
Exam(s) MR LUMBAR SPINE WO EXAM: MR LUMBAR SPINE WO CLINICAL HISTORY: Lumbosacral radiculopathy, M54.17; h/o lt foot drop. TECHNIQUE: Multiplanar multisequence MRI of the Lumbar spine was performed. COMPARISON: CT CT ABDOMEN PELVIS W from 06/11/2018 FINDINGS: Five lumbar vertebrae are presumed. Conus medullaris is at normal level. There is no evidence of conus mass nor subjacent clumping of in trathecal nerve roots to suggest arachnoiditis. The distal thecal sac is slightly higher than typica l, at the L5-S1 level in this patient..There is no evidence of Tarlov intrasacral cysts nor other sig nificant findings within the sacral canal Bones:There are no fractures nor ominous osseous lesions in the lumbar vertebral bodies and visualize d sacrum. With respect to the individual levels... T12-L1: Unremarkable L1-2: Normal disc height and signal. No disc herniation nor central canal stenosis.No foraminal steno sis L2-3: Normal disc height. No disc herniation nor central canal stenosis.No foraminal stenosis.No face t arthropathy. L3-4: Normal disc height. No disc herniation or central canal stenosis.No foraminal stenosis.No face t arthropathy. L4-5: There is normal disc height and signal in. There is mild anterolisthesis of L4 upon L5 which w as not previously present on abdominal CT scan of June 2018. This is due to facet arthropathy whi ch has developed since that time. There is mild annular bulging a distinct focal disc herniation. M ild central canal stenosis. There is only minimal foraminal stenosis bilaterally. This is due to th e preserved disc height at this level. Moderate-advanced facet arthropathy bilaterally noted. L5-S1: Normal disc height and signal. No disc herniation or central canal stenosis. No significant foraminal stenosis. Facet joints appear unremarkable at this level. Soft tissues: paraspinal soft tissues appear unremarkable. IMPRESSION: 1. At the L4-5 level there is mild degenerative anterolisthesis of L4 upon L5 which was not evident o n abdominal CT scan of June 2018 and is related to interval development of significant degenerativ e change in both facet joints at this level. There is mild central canal stenosis as this level. Mi nimal foraminal narrowing but no tight foraminal stenosis. 2. Keeping in mind that the patient is supine for this examination with pillows under the knees for c omfort, if clinically indicated flexion extension plain film views of the lumbar spine can be perform ed to determine the true amount of anterior slippage of L4 upon L5 during everyday activities. 3. Other levels appear relatively unremarkable. DATA REPOSITORY:
== END ==
PROVIDERS: PCP Nurse Practitioner Family; Visit Provider Nurse Practitioner Family
DX: M54.17 Radiculopathy, lumbosacral region (principal); M43.16 Spondylolisthesis, lumbar region
CPT/HCPCS: 72148

== ENCOUNTER → 2023-11-25 11:06 | Outpatient (CLI) | payer BC, SELFPAY ==
--- NOTE | 2023-11-25 | DI.RAD_ITS ---
Exam(s) XR LUMBAR SPINE FLEX/EXT ONLY EXAM: XR LUMBAR SPINE FLEX/EXT ONLY INDICATION: M54.17 Radiculopathy,lumbosacral region. COMPARISON: MR MR LUMBAR SPINE WO from 11/18/2023 TECHNIQUE: 2D digital imaging was performed. Three flexion and extension lateral views. No neutral view. FINDINGS: Exam is somewhat limited by under penetration. Mild spondylolisthesis is noted at L4-5 without sheth e with flexion and extension. There are degenerative changes of the facet joints at this level. No spondylolysis.. IMPRESSION: Mild L4-5 spondylolisthesis without change in flexion or extension. DATA REPOSITORY: RADIATION DOSE DELIVERED:
== END ==
PROVIDERS: PCP Nurse Practitioner Family; Visit Provider Nurse Practitioner Family
DX: M54.17 Radiculopathy, lumbosacral region (principal); M43.16 Spondylolisthesis, lumbar region; M47.26 Other spondylosis with radiculopathy, lumbar region
CPT/HCPCS: 72120

== ENCOUNTER 2024-02-03 08:05 | Outpatient (CLI) | payer BC, SELFPAY ==
--- NOTE | 2024-02-03 06:45 | DI.RAD_ITS ---
Exam(s) XR PAIN CLINIC LUMBAR SP 2V EXAM: XR PAIN CLINIC LUMBAR SP 2V CLINICAL HISTORY: Dx: Lumbar Radiculopathy TECHNIQUE: 2D and realtime digital imaging was performed. CONTRAST MATERIAL: Refer to procedure report. COMPARISON: No exams were available for comparison FINDINGS: Fluoroscopy was provided for Dr. Ivan smith during the performance of a transforaminal epidural kaleb roid injection. Please refer to the procedure report for complete details. Ka,r=27.0 mGy IMPRESSION: RADIATION DOSE DELIVERED: 0.0 0.0 0
[2024-02-03 08:13] VITALS: BP 133/87; PULSE 65; RESP 20; TEMP 36.7; O2SAT 99
--- NOTE | 2024-02-03 08:20 | PDOC.PAIN ---
Date of service: 02/03/24 Time of Service: 08:58 Pain Managment Procedure Note Procedure Note Procedure Note: Lumbar Transforaminal Epidural Steroid Injection ? Location: LEFT L4 and L5 ? Pre-procedure Diagnosis: M54.17-Radiculopathy, lumbosacral region M54.16 Radiculopathy, lumbar region ? Post-procedure Diagnosis:? The same as above ? Sedation:? none ? Estimated blood loss:? less than 2 cc ? Surgeon:? Abhijeet Bella MD COMMENT: PT HAS FORAMINAL AND LAT RECESS STENOSIS AT THE L L4-5 LEVEL. ? Procedure Detail:?? The procedure and potential risks were explained to the patient and informed written consent was obtained. The patient was escorted to the procedure room and placed in the prone position. Pillows were utilized for proper positioning and comfort. Time out was performed in the procedure room with nursing staff confirming the patient's identity, procedure to be performed, allergies, and any blood thinning or anti-platelet medications. The patient's lower back was prepped with ChloraPrep and draped in a sterile fashion. Sterile gloves were used, a face mask was worn, and new single dose vials of all medications were used with the top being swabbed with alcohol and given time to dry prior to withdrawal of medication. A LEFT-sided oblique fluoroscopic view was obtained, with visualization of L4. Lidocaine 1% was used to anesthetize the skin. The tip of a 22-gauge, Quincke needle was advanced toward the 6 o'clock position of the superior pedicle at the target level.? It was advanced just under the pedicle to the neural foramen L4-5. Correct needle placement was confirmed through review of the fluoroscopy. Next, following negative aspiration, 1cc's of Omnipaque 300 contrast was injected under live fluoroscopy which showed good flow throughout the epidural space and no evidence of vascular flow or flow into adjacent compartments. Next, following negative aspiration, 7.5 MG of preservative-free dexamethasone and 0.5ml of 0.5% bupivacaine was injected. The needle was gently removed.? The procedure was also performed in the same fashion at L5.? The patient tolerated the procedure well.? Permanent images saved and recorded. Plan:? Follow up prn COMMENT: WOULD REPEAT PRN. CONSIDER DEPOMEDROL IF THIS IS NOT LONG LASTING OR CONSIDER INTERLAMINAR.
[2024-02-03 08:43] VITALS: O2SAT 99
[2024-02-03 08:50] VITALS: O2SAT 99
[2024-02-03] MEDS: Omnipaque 240 MG/ML 50 ML BTL IJ (09:04)
[2024-02-03] MEDS: Bupivacaine 0.5% Pres-Free 10 ML VIAL IJ (09:08)
[2024-02-03] MEDS: Dexamethasone Sod. Phos./Pres-Free 10 MG/ML VIAL IJ (09:08)
[2024-02-03] MEDS: Nerve Block Tray 1 EACH MC (09:08)
== END 2024-02-03 08:06 | disposition home or self-care (01) ==
LOC: PC 08:06
PROVIDERS: PCP Nurse Practitioner Family; Visit Provider Anesthesiology Pain Medicine
DX: M54.17 Radiculopathy, lumbosacral region (principal); M54.16 Radiculopathy, lumbar region
CPT/HCPCS: 00123; 64483; 64484; 72100; J0665; J1100; Q9967

== ENCOUNTER 2024-02-23 13:46 | Outpatient (CLI) | payer BC, SELFPAY ==
--- NOTE | 2024-02-23 06:00 | DI.RAD_ITS ---
Exam(s) XR PAIN CLINIC LUMBAR SP 2V EXAM: XR PAIN CLINIC LUMBAR SP 2V CLINICAL HISTORY: DX: Lumbar radiculopathy TECHNIQUE: 2D and realtime digital imaging was performed. Radiologist not present. CONTRAST MATERIAL: None. COMPARISON: No exams were available for comparison FINDINGS: Fluoroscopy was provided for pain management therapy. Please refer to procedure report or details. Radiation Exposure Index: Ka,r=23.41 mGy IMPRESSION: As above. RADIATION DOSE DELIVERED:
[2024-02-23 13:51] VITALS: BP 124/85; PULSE 77; RESP 20; TEMP 36.7; O2SAT 99
--- NOTE | 2024-02-23 14:03 | PDOC.PAIN ---
Date of service: 02/23/24 Time of Service: 14:31 Pain Managment Procedure Note Procedure Note Procedure Note: Lumbar Transforaminal Epidural Steroid Injection ? Location: LEFT L4 and L5 ? Pre-procedure Diagnosis: M54.17-Radiculopathy, lumbosacral region M54.16 Radiculopathy, lumbar region ? Post-procedure Diagnosis:? The same as above ? Sedation:? none ? Estimated blood loss:? less than 2 cc ? Surgeon:? Abhijeet Bella MD COMMENT: Patient had excellent relief from the previous two-level transforaminal steroid injection however it was short-lived. She has foraminal and lateral recess stenosis on the left at L4 and L5 ? Procedure Detail:?? The procedure and potential risks were explained to the patient and informed written consent was obtained. The patient was escorted to the procedure room and placed in the prone position. Pillows were utilized for proper positioning and comfort. Time out was performed in the procedure room with nursing staff confirming the patient's identity, procedure to be performed, allergies, and any blood thinning or anti-platelet medications. The patient's lower back was prepped with ChloraPrep and draped in a sterile fashion. Sterile gloves were used, a face mask was worn, and new single dose vials of all medications were used with the top being swabbed with alcohol and given time to dry prior to withdrawal of medication. A LEFT-sided oblique fluoroscopic view was obtained, with visualization of L4-5. Lidocaine 1% was used to anesthetize the skin. The tip of a 22-gauge, Quincke needle was advanced toward the 6 o'clock position of the superior pedicle at the target level.? It was advanced just under the pedicle to the neural foramen L4-5. Correct needle placement was confirmed through review of the fluoroscopy. Next, following negative aspiration, 1cc's of Omnipaque 240 contrast was injected under live fluoroscopy which showed good flow throughout the epidural space and no evidence of vascular flow or flow into adjacent compartments. Next, following negative aspiration, 40 mg of Depo-Medrol and 0.5ml of 0.5% bupivacaine was injected. The needle was gently removed.? The procedure was also performed in the same fashion at L5-S1 left.? The patient tolerated the procedure well.? Permanent images saved and recorded. Plan:? Follow up prn PAIN: PRE PROCEDURE 10 POST PROCEDURE 0 COMMENT: Consider interlaminar approach if this is not long-lasting
[2024-02-23 14:12] VITALS: O2SAT 97
[2024-02-23 14:20] VITALS: PULSE 78; O2SAT 100
[2024-02-23] MEDS: Bupivacaine 0.5% Pres-Free 10 ML VIAL IJ (14:39)
[2024-02-23] MEDS: methylPREDNISolone ACETATE 40 MG/ML VIAL IJ (14:39)
[2024-02-23] MEDS: Nerve Block Tray 1 EACH MC (14:40)
[2024-02-23] MEDS: Omnipaque 240 MG/ML 50 ML BTL IJ (14:40)
== END 2024-02-23 13:47 | disposition home or self-care (01) ==
LOC: PC 13:46
PROVIDERS: PCP Nurse Practitioner Family; Visit Provider Anesthesiology Pain Medicine
DX: M54.17 Radiculopathy, lumbosacral region (principal); M54.16 Radiculopathy, lumbar region
CPT/HCPCS: 00123; 64483; 64484; 72100; J0665; J1010; Q9967

== ENCOUNTER 2024-11-02 12:30 | Outpatient (REF) | payer BC, SELFPAY ==
[2024-11-02 19:10] LABS: ALT 39 U/L (14-59); AST 39 U/L (15-37); Albumin 4.4 g/dL (3.4-5.0); Alkaline Phosphatase 84 U/L (46-116); Anion Gap 5.7 mmol/L (3-11); BUN 17 mg/dL (7-18); Bilirubin, Total 0.6 mg/dL (0.2-1.0); CO2 29.3 mmol/L (21.0-32.0); CREATININE 0.7 mg/dL (0.55-1.02); Calcium 9.4 mg/dL (8.5-10.1); Calculated LDL 116 mg/dL (<100); Chloride 105 mmol/L (98-107); Cholesterol 184 mg/dL (<200); Estimated GFR 106.62 (mL/min/1.73m2); Glucose 102 mg/dL (74-106); HDL Cholesterol 58 mg/dL (>or=50); Potassium 4.3 mmol/L (3.5-5.1); Sodium 140 mmol/L (136-145); Total Protein 7.6 g/dL (6.4-8.2); Triglyceride 52 mg/dL (<150)
== END 2024-11-02 12:31 | disposition home or self-care (01) ==
LOC: NCHCN 12:30
PROVIDERS: PCP Nurse Practitioner Family; Visit Provider Nurse Practitioner Family
DX: E78.2 Mixed hyperlipidemia (principal)
CPT/HCPCS: 80053; 80061